=== PATIENT | female | born 1985 ===

== ENCOUNTER 2022-12-01 15:32 | Emergency (ER) | payer OTHER | END 2022-12-01 16:35 | disposition left against medical advice (07) | LOC: DL.ED 15:32 | DX: Z53.21 Procedure and treatment not carried out due to patient leaving prior to being seen by health care provider (principal) | CPT/HCPCS: 93005 ==

== ENCOUNTER 2023-01-05 04:19 | Emergency (ER) | payer OTHER ==
[2023-01-05] MEDS: Oxymetazoline 0.05% Nasal Spray 30 ML Bottle NAS ONE ×2 (05:16→05:42)
[2023-01-05 05:18] LABS: BASOPHILS PERCENT AUTO 0.8 % (0.0-1.0); EOSINOPHILS PERCENT AUTO 1.9 % (1.0-3.0); HEMATOCRIT 36.9 % (37.0-47.0); HEMOGLOBIN 11.8 g/dL (12.0-16.0); LYMPHOCYTES PERCENT AUTO 39.5 % (20.5-50.1); MEAN CORPUSCULAR HEMOGLOBIN 25.8 pg (27.0-34.0); MEAN CORPUSCULAR VOLUME 80.6 fL (80-100); MONOCYTES PERCENT AUTO 6.7 % (2-8); NEUTROPHILS PERCENT AUTO 51.1 % (42.2-75.2); PLATELET COUNT,PLT 230 10^3/uL (150-450); RED BLOOD CELL COUNT 4.58 10^6/uL (4.2-5.4)
[2023-01-05 05:42] LABS: INR 2.9 (0.9-1.2); PROTHROMBIN TIME 28.3 SEC (9.0-12.0)
== END 2023-01-05 06:30 | disposition home or self-care (01) ==
LOC: DL.ED 04:19
DX: R04.0 Epistaxis (principal); D68.59 Other primary thrombophilia; Z88.8 Allergy status to other drugs, medicaments and biological substances
CPT/HCPCS: 36415; 85025; 85610; 99282; 99283; A9270-GY